=== PATIENT | female | born 1965 | race Caucasian/White ===

== ENCOUNTER 2021-09-19 14:22 | Emergency (ER) | payer BC, OTHER ==
[2021-09-19 14:34] VITALS: BP 115/78; PULSE 94; TEMP 98.8; BMI 24.7
[2021-09-19] MEDS ORDERED: IBUPROFEN 400 MG TABLET (FP) PO ONE (14:40)
== END 2021-09-19 16:09 | disposition home or self-care (01) ==
LOC: FER 14:22
DX: M79.674 Pain in right toe(s) (principal)
CPT/HCPCS: 73630-TC-RT-FY; 99283-25

== ENCOUNTER 2024-03-13 06:24 | Day surgery (SDC) | payer SELFPAY ==
[2024-03-08 15:00] VITALS: BMI 26.6
[2024-03-13] MEDS ORDERED: PROPOFOL 20 ML ONE ×2 (07:15→11:09)
[2024-03-13] MEDS ORDERED: SUCCINYLCHOLINE CHLORIDE 200 MG/10 ML SYRINGE ONE (07:15)
[2024-03-13] MEDS ORDERED: LIDOCAINE HCL/PF 2% SDV 5ML VIAL ONE (07:15)
[2024-03-13] MEDS ORDERED: MIDAZOLAM HCL 2 MG/2 ML SINGLE DOSE VIAL ONE (07:16)
[2024-03-13] MEDS ORDERED: ROCURONIUM BROMIDE 50 MG/5 ML SYRINGE ONE ×2 (07:16→10:19)
[2024-03-13] MEDS ORDERED: BUPIVACAINE HCL/PF 0.25% (2.5MG/ML) 10 ML VIAL ONE (07:22)
[2024-03-13] MEDS ORDERED: LIDOCAINE 1%/EPI 1:100000 (20 ML MULTI DOSE VIAL) ONE (07:22)
[2024-03-13] MEDS ORDERED: BUPIVACAINE HCL/PF 2.5 MG/ML - 30 ML VIAL IJ ONE (07:22)
[2024-03-13] MEDS ORDERED: GUM MASTIC/STORAX/MSAL/ALCOHOL 1 DRP DROPSBTL MC ONE (07:23)
[2024-03-13] MEDS ORDERED: PROPOFOL 100 ML ONE (08:04)
[2024-03-13] MEDS ORDERED: LACTATED RINGERS SOLUTION 1,000 ML IV SCH (08:30)
[2024-03-13] MEDS ORDERED: DEXAMETHASONE SOD PHOSPHATE 4 MG/1 ML VIAL ONE (08:41)
[2024-03-13] MEDS ORDERED: ceFAZolin SODIUM 1 GM VIAL ONE ×2 (08:41→13:25)
[2024-03-13] MEDS: LIDOCAINE 1%/EPI 1:100000 (20 ML MULTI DOSE VIAL) IJ ONE (09:01)
[2024-03-13] MEDS ORDERED: PROPOFOL 80 ML ONE (09:12)
[2024-03-13] MEDS ORDERED: oxyCODONE HCL 5 MG TABLET PO PRN ×2 (10:00)
[2024-03-13] MEDS ORDERED: PROMETHAZINE HCL 25 MG/1 ML VIAL IVPB PRN (10:00)
[2024-03-13] MEDS ORDERED: PROPOFOL 60 ML ONE (11:09)
[2024-03-13] MEDS ORDERED: DEXMEDETOMIDINE HCL 200 MCG/2 ML IVPB ONE (11:14)
[2024-03-13] MEDS ORDERED: PROPOFOL 40 ML ONE ×4 (12:39→15:05)
[2024-03-13] MEDS ORDERED: ONDANSETRON 4 MG/2 ML VIAL ONE ×2 (16:28→18:12)
[2024-03-13] MEDS: BUPIVACAINE HCL/PF 0.25% (2.5MG/ML) 10 ML VIAL IJ ONE ×4 (16:40)
[2024-03-13] MEDS ORDERED: ACETAMINOPHEN INJECTION 100 ML ONE (17:44)
[2024-03-13] MEDS: ACETAMINOPHEN 1000 MG/100 ML BAG IVPB ONE (17:50)
[2024-03-13] MEDS: ONDANSETRON 4 MG/2 ML VIAL IVPUSH PRN (18:13)
[2024-03-13 18:52] VITALS: TEMP 97.3
[2024-03-13 19:33] VITALS: BP 138/77; PULSE 93; RESP 19
== END 2024-03-13 19:33 | disposition home or self-care (01) ==
LOC: FASU 06:24
PROVIDERS: ATTEND Surgery
PROC: 0H0V0ZZ Alteration of Bilateral Breast, Open Approach (ICD-10-PCS; principal; 2024-03-13 09:01)
DX: Z41.1 Encounter for cosmetic surgery (principal); N62 Hypertrophy of breast; Z85.3 Personal history of malignant neoplasm of breast
CPT/HCPCS: 88305-TC; 94760; J0131